=== PATIENT | male | born 1980 | race African-American/Black ===

== ENCOUNTER 2021-01-26 16:22 | Emergency (ER) | payer OTHER ==
[~2021-01-26] VITALS: Ht 175.3 cm; Wt 77.3 kg
[~2021-01-26 16:22] MED LIST: KEPPRA1000 MG PO; METOPROLOL TART50 MG PO; NEPHRO-VITE RX1 TAB PO; SENSIPAR60 MG PO
[2021-01-26 16:29] VITALS: Ht 175.3 cm; Wt 77.3 kg
[2021-01-26 17:06] LABS: BASOPHILS 0.5 % (0-2); EOSINOPHILS 2.1 % (0-7); HEMATOCRIT 34.3 % (42.0-54.0); HEMOGLOBIN 10.9 g/dL (13.5-17.5); IMMATURE GRANULOCYTES 0.1 % (0-5); LYMPHOCYTES 20.6 % (15-50); MCH 26.5 pg (26.0-34.0); MCHC 31.8 g/dL (31.0-37.0); MCV 83.5 fL (80.0-100.0); MEAN PLATELET VOLUME 9.6 fL (7.4-10.4); MONOCYTES 9.6 % (2-11); NEUTROPHIL ABS# 5.85 10x3/uL (1.78-5.38); NEUTROPHILS 67.1 % (40-80); RBC 4.11 10x6/uL (4.20-6.10); RDW 16.7 % (11.5-14.5); WBC 8.7 10x3/uL (4.8-10.8)
[2021-01-26 17:13] LABS: ANION GAP 15.9 mmol/L (8-16); CALCIUM 9.7 mg/dL (8.5-10.1); CARBON DIOXIDE 22.1 mmol/L (21.0-32.0); CREATININE - SERUM 9.3 mg/dL (0.6-1.3)
[2021-01-26 17:20] LABS: ALBUMIN 2.6 g/dL (3.4-5.0); BILIRUBIN - TOTAL 0.29 mg/dL (0.2-1.3); MAGNESIUM - SERUM 2.7 mg/dL (1.8-2.4); PHOSPHOROUS 7.2 mg/dL (2.5-4.9); PLATELET COUNT 268 10x3/uL (130-400); PROTEIN - SERUM 7.3 g/dL (6.4-8.2)
[2021-01-26 18:23] VITALS: BP 194/103
== END 2021-01-26 19:10 ==
LOC: D.ER 16:22
PROVIDERS: Emergency Medicine
DX: E11.649 Type 2 diabetes mellitus with hypoglycemia without coma (principal); Z79.4 Long term (current) use of insulin; I10 Essential (primary) hypertension; K21.9 Gastro-esophageal reflux disease without esophagitis

== ENCOUNTER 2021-02-22 12:30 | Emergency (ER) | payer OTHER ==
[~2021-02-22] VITALS: Ht 175.3 cm; Wt 79.5 kg
[2021-02-22 12:32] VITALS: Ht 175.3 cm; Wt 79.5 kg
[2021-02-22] MEDS ORDERED: KAYEXALATE15 G/60 ML PO (14:25)
[2021-02-22] MEDS ORDERED: NOVOLOG100 UNIT/1 SC (14:27)
[2021-02-22] MEDS ORDERED: SENSIPAR60 MG PO (14:28)
[2021-02-22] MEDS ORDERED: ERGOCALCIF50000 UNIT PO (14:28)
[2021-02-22] MEDS ORDERED: LANTUS INS100 UNITS/ SC (14:29)
[2021-02-22] MEDS ORDERED: XOPENEX HFA15 GM INH (14:29)
[2021-02-22] MEDS ORDERED: ADALAT CC90 MG PO (14:30)
[2021-02-22] MEDS ORDERED: ENSURE PO (14:30)
[2021-02-22] MEDS ORDERED: [UNRECOGNIZED DRUG - OTHER] (14:31)
[2021-02-22] MEDS ORDERED: HYDRALAZINE HCL25 MG PO (14:32)
[2021-02-22] MEDS ORDERED: ELIQUIS5 MG PO (14:32)
[2021-02-22] MEDS ORDERED: ALDACTONE25 MG PO (14:32)
[2021-02-22] MEDS ORDERED: OMEPRAZOLE20 M1 PO (14:32)
[2021-02-22] MEDS ORDERED: KEPPRA500 MG PO (14:33)
[2021-02-22] MEDS ORDERED: RENVELA800 MG PO (14:33)
[2021-02-22] MEDS ORDERED: DERMAREST (14:34)
[2021-02-22] MEDS ORDERED: COREG25 MG PO (14:40)
[2021-02-22 16:07] LABS: CARBON DIOXIDE 24.5 mmol/L (21.0-32.0); CREATININE - SERUM 6.3 mg/dL (0.6-1.3); POTASSIUM - SERUM 4.5 mmol/L (3.5-5.1)
[2021-02-22 16:33] LABS: ALBUMIN 2.7 g/dL (3.4-5.0); BILIRUBIN - TOTAL 0.35 mg/dL (0.2-1.3); MAGNESIUM - SERUM 2.2 mg/dL (1.8-2.4); PHOSPHOROUS 4.5 mg/dL (2.5-4.9); PROTEIN - SERUM 7.4 g/dL (6.4-8.2)
[2021-02-22 16:38] LABS: TROPONIN-I 0.105 ng/mL (0.000-0.060)
[2021-02-22 16:44] LABS: BASOPHILS 0.4 % (0-2); EOSINOPHILS 4.7 % (0-7); HEMATOCRIT 33.3 % (42.0-54.0); HEMOGLOBIN 10.5 g/dL (13.5-17.5); IMMATURE GRANULOCYTES 0.3 % (0-5); LYMPHOCYTE ABS# 1.61 10x3/uL (1.32-3.57); LYMPHOCYTES 20.9 % (15-50); MCH 25.7 pg (26.0-34.0); MCHC 31.5 g/dL (31.0-37.0); MCV 81.4 fL (80.0-100.0); NEUTROPHIL ABS# 4.92 10x3/uL (1.78-5.38); NEUTROPHILS 63.7 % (40-80); PLATELET COUNT 226 10x3/uL (130-400); RBC 4.09 10x6/uL (4.20-6.10); RDW 17.7 % (11.5-14.5); WBC 7.7 10x3/uL (4.8-10.8)
[2021-02-22 17:25] VITALS: BP 167/87
== END 2021-02-22 17:25 ==
LOC: D.ER 12:30
PROVIDERS: Emergency Medicine
DX: E11.649 Type 2 diabetes mellitus with hypoglycemia without coma (principal); R07.89 Other chest pain; N18.6 End stage renal disease; E11.22 Type 2 diabetes mellitus with diabetic chronic kidney disease; I12.0 Hypertensive chronic kidney disease with stage 5 chronic kidney disease or end stage renal disease; K21.9 Gastro-esophageal reflux disease without esophagitis; Z99.2 Dependence on renal dialysis; Z79.4 Long term (current) use of insulin

== ENCOUNTER → 2021-02-25 | Emergency (ER) | payer OTHER ==
[~2021-02-25] VITALS: Ht 175.3 cm; Wt 83.6 kg
[~2021-02-25] MED LIST changes: +ADALAT CC90 MG PO; +ALDACTONE25 MG PO; +AUGMENTIN 875-11 TAB PO; +COREG25 MG PO; +DERMAREST; +ELIQUIS5 MG PO; +ENSURE PO; +ERGOCALCIF50000 UNIT PO; +HYDRALAZINE HCL25 MG PO; +KAYEXALATE15 G/60 ML PO; +KEPPRA500 MG PO; +LANTUS INS100 UNITS/ SC; +NOVOLOG100 UNIT/1 SC; +OMEPRAZOLE20 M1 PO; +RENVELA800 MG PO; +XOPENEX HFA15 GM INH; +[UNRECOGNIZED DRUG - OTHER]
[2021-02-25 11:04] VITALS: Ht 175.3 cm; Wt 83.6 kg
[2021-02-25 11:29] LABS: BASOPHILS 0.5 % (0-2); EOSINOPHILS 3.2 % (0-7); HEMATOCRIT 31.1 % (42.0-54.0); HEMOGLOBIN 9.8 g/dL (13.5-17.5); IMMATURE GRANULOCYTES 0.2 % (0-5); LYMPHOCYTE ABS# 1.44 10x3/uL (1.32-3.57); LYMPHOCYTES 16.3 % (15-50); MCHC 31.5 g/dL (31.0-37.0); MCV 82.5 fL (80.0-100.0); MEAN PLATELET VOLUME 10.7 fL (7.4-10.4); MONOCYTES 12.1 % (2-11); NEUTROPHIL ABS# 5.97 10x3/uL (1.78-5.38); NEUTROPHILS 67.7 % (40-80); PLATELET COUNT 193 10x3/uL (130-400); RBC 3.77 10x6/uL (4.20-6.10); WBC 8.8 10x3/uL (4.8-10.8)
[2021-02-25 11:49] LABS: CALC OSMOLALITY 290 mosm/kg (275-300); CALCIUM 9.3 mg/dL (8.5-10.1); CARBON DIOXIDE 22.7 mmol/L (21.0-32.0); CHLORIDE - SERUM 104 mmol/L (98-107); CREATININE - SERUM 8.3 mg/dL (0.6-1.3); POTASSIUM - SERUM 5.4 mmol/L (3.5-5.1); SODIUM 139 mmol/L (136-145); UREA NITROGEN 37 mg/dL (7-18); eGFR NON AFRICAN AMERICAN 8 mL/min (90-120)
[2021-02-25 11:51] LABS: GLUCOSE 171 mg/dL (74-106)
[2021-02-25 11:58] LABS: INR 1.27 (0.85-1.17); PROTIME 14.8 SECONDS (11.6-15.0)
[2021-02-25 11:59] LABS: APTT 52.5 SECONDS (22.8-39.4)
[2021-02-25 12:00] LABS: D-DIMER-QUANTITATIVE 1.27 ug/mLFEU (0.20-0.54)
[2021-02-25 12:06] LABS: ALBUMIN 2.9 g/dL (3.4-5.0); ALKALINE PHOSPHATASE 92 U/L (30-120); ALT (SGPT) 19 U/L (10-68); CKMB 7.5 U/L (0.0-3.6); CREATINE KINASE 313 UL (21-232); MAGNESIUM - SERUM 2.9 mg/dL (1.8-2.4); PROTEIN - SERUM 7.7 g/dL (6.4-8.2)
[2021-02-25 12:30] LABS: TROPONIN-I 0.079 ng/mL (0.000-0.060)
[2021-02-25 19:17] VITALS: BP 176/92
== END | disposition home or self-care (01) ==
LOC: D.ER 11:00
PROVIDERS: Family Medicine
DX: R07.9 Chest pain, unspecified (principal); N18.6 End stage renal disease; Z99.2 Dependence on renal dialysis; E87.5 Hyperkalemia; R59.1 Generalized enlarged lymph nodes; E11.9 Type 2 diabetes mellitus without complications; Z79.4 Long term (current) use of insulin; I10 Essential (primary) hypertension; K21.9 Gastro-esophageal reflux disease without esophagitis

== ENCOUNTER 2021-03-14 02:19 | Inpatient (IN) | payer MEDICAID ==
[~2021-03-14] VITALS: Ht 175.3 cm; Wt 79.5 kg
[2021-03-14] VITALS (71 sets, daily range): BP systolic 104–207; BP diastolic 62–115; BMI 28.8
[2021-03-14 03:03] LABS: UDS - AMPHET NEGATIVE QUAL (NEGATIVE); UDS - BARB NEGATIVE QUAL (NEGATIVE); UDS - BENZO NEGATIVE QUAL (NEGATIVE); UDS - COCAINE NEGATIVE QUAL (NEGATIVE); UDS - OPIATE NEGATIVE QUAL (NEGATIVE); UDS - PCP NEGATIVE QUAL (NEGATIVE)
[2021-03-14 03:05] LABS: UDS - THC NEGATIVE QUAL (NEGATIVE)
[2021-03-14 03:08] LABS: BILIRUBIN NEGATIVE (NEGATIVE); KETONE NEGATIVE (NEGATIVE); NITRITE NEGATIVE (NEGATIVE); UROBILINOGEN NORMAL mg/dL (< 2)
[2021-03-14 03:09] LABS: BACTERIA MANY HPF (NONE SEEN); WHITE CELLS - URINE >50 HPF (0-1)
[2021-03-14 03:23] LABS: ANION GAP 21.6 mmol/L (8-16); CALCIUM 9.8 mg/dL (8.5-10.1); CARBON DIOXIDE 18.8 mmol/L (21.0-32.0); CREATININE - SERUM 8.9 mg/dL (0.6-1.3); POTASSIUM - SERUM 5.4 mmol/L (3.5-5.1)
[2021-03-14 03:33] LABS: BASOPHILS 0.8 % (0-2); EOSINOPHILS 5.3 % (0-7); HEMOGLOBIN 10.6 g/dL (13.5-17.5); IMMATURE GRANULOCYTES 0.9 % (0-5); LYMPHOCYTE ABS# 1.43 10x3/uL (1.32-3.57); LYMPHOCYTES 22.4 % (15-50); MCHC 31.2 g/dL (31.0-37.0); MCV 83.5 fL (80.0-100.0); MEAN PLATELET VOLUME 11.8 fL (7.4-10.4); NEUTROPHIL ABS# 4.06 10x3/uL (1.78-5.38); NEUTROPHILS 63.6 % (40-80); RBC 4.07 10x6/uL (4.20-6.10); RDW 18.5 % (11.5-14.5); WBC 6.4 10x3/uL (4.8-10.8)
[2021-03-14 03:38] LABS: PLATELET COUNT 259 10x3/uL (130-400)
[2021-03-14 03:46] LABS: ALBUMIN 2.9 g/dL (3.4-5.0); BILIRUBIN - TOTAL 0.42 mg/dL (0.2-1.3); MAGNESIUM - SERUM 2.8 mg/dL (1.8-2.4); PROTEIN - SERUM 7.9 g/dL (6.4-8.2); TROPONIN-I 0.054 ng/mL (0.000-0.060)
[2021-03-14 03:56] LABS: APTT 40.3 SECONDS (22.8-39.4); INR 1.26 (0.85-1.17); PROTIME 14.6 SECONDS (11.6-15.0)
[2021-03-14 03:57] LABS: D-DIMER-QUANTITATIVE 1.39 ug/mLFEU (0.20-0.54)
--- NOTE | 2021-03-14 07:10 | NUR ---
REPORT RECEIVED FROM OFF GOING NURSE AND PATIENT CARE ASSUMED. PATIENT LAYING ON BACK WITH HOB ELEVATED 30 DEGREES WITH EYES CLOSED AND BREATHING EVENLY. ALL LINES TUBES CHECKED AND PATENT. VSS. RT HAND EDEMATOUS AND COOL TO TOUCH. PULSES PALPABLE. PATIENT IS A PRISONER AND HAS HAND CUFF TO RT HAND WITH DATA PROCESSING AUDITOR PRESENT.REQUESTED TO MOVE HANDCUFF TO RT WRIST AND GUARD MOVED CUFF. PATIENT AWAKENS TO VOICE . ORIENTED TO NAME ONLY. PATIENT DENIES ANY NEEDS OR PAIN. WILL CONTINUE WITH PLAN OF CARE. SR UP X 2 BED IN LOW POSITION AND CALL LIGHT IN REACH.
--- NOTE | 2021-03-14 10:00 | NUR ---
ELSY CAMPOS WITH NEPHROLOGY ON UNIT. NEW ORDERS RECEIVED. WILL CONTINUE TO MONITOR. AR UP X 2 BED IN LOW POSITION AND CALL LIGHT IN REACH.
--- NOTE | 2021-03-14 11:14 | NUR ---
DR THORNTON ON UNIT.
--- NOTE | 2021-03-14 13:57 | NUR ---
PATIENT UNDERGOING DIALYSIS . VSS. WILL CONTINUE TO MONITOR. GUARD AND DIALYSIS NURSE AT BS. WILL CONTINUE TO MONITOR. SR UP X 2 BED IN LOW POSITION AND CALL LIGHT IN REACH.
[2021-03-15] VITALS (27 sets, daily range): BP systolic 114–186; BP diastolic 71–99; BMI 26.7
--- NOTE | 2021-03-15 03:06 | NUR ---
Patient reports chest pain, restless, tearful. Unable to verbalize description. Vitals stable. Baldomero Lozano APRN notified. EKG completed normal sinus rhythm. Will obtain cardiac enzymes as ordered.
--- NOTE | 2021-03-15 04:05 | NUR ---
Patient asleep. Aroused to touch. Denies pain or distress. Non-verbal, nods head. Will continue to monitor.
[2021-03-15 05:47] LABS: BASOPHILS 0.8 % (0-2); EOSINOPHILS 6.8 % (0-7); HEMATOCRIT 34.7 % (42.0-54.0); HEMOGLOBIN 10.8 g/dL (13.5-17.5); IMMATURE GRANULOCYTES 0.3 % (0-5); LYMPHOCYTE ABS# 1.53 10x3/uL (1.32-3.57); LYMPHOCYTES 24.6 % (15-50); MCHC 31.1 g/dL (31.0-37.0); MCV 83.6 fL (80.0-100.0); MEAN PLATELET VOLUME 11.7 fL (7.4-10.4); MONOCYTES 9.5 % (2-11); NEUTROPHIL ABS# 3.61 10x3/uL (1.78-5.38); PLATELET COUNT 263 10x3/uL (130-400); RBC 4.15 10x6/uL (4.20-6.10); RDW 18.9 % (11.5-14.5); WBC 6.2 10x3/uL (4.8-10.8)
--- NOTE | 2021-03-15 06:20 | NUR ---
Still unable to cancel PRBC order entered in error at 0542. Spoke to Jenny in the lab. Stated she will cancel.
[2021-03-15 06:27] LABS: CKMB 4.6 U/L (0.0-3.6); TROPONIN-I 0.051 ng/mL (0.000-0.060)
--- NOTE | 2021-03-15 06:31 | NUR ---
No sign of distress. Patient in bed quiet with eyes closed. Cardene drip remains off since 0150, Hydralazine administered x 1 as ordered prn.
--- NOTE | 2021-03-15 07:00 | NUR ---
REPORT RECEIVED. ASSESSMENT COMPLTE PER FLOW SHEET. VSS. REPOSITIONED FOR COMFORT. NEEDS MET.
[2021-03-15 07:02] LABS: ALBUMIN 2.7 g/dL (3.4-5.0); ANION GAP 20.2 mmol/L (8-16); BILIRUBIN - TOTAL 0.32 mg/dL (0.2-1.3); CALCIUM 10.1 mg/dL (8.5-10.1); CARBON DIOXIDE 20.7 mmol/L (21.0-32.0); CREATININE - SERUM 8.5 mg/dL (0.6-1.3); MAGNESIUM - SERUM 2.7 mg/dL (1.8-2.4); PHOSPHOROUS 7.1 mg/dL (2.5-4.9); POTASSIUM - SERUM 4.9 mmol/L (3.5-5.1); PROTEIN - SERUM 7.3 g/dL (6.4-8.2)
--- NOTE | 2021-03-15 09:15 | NUR ---
ORAL SUCTION ADM REPOSTITIONED FOR COMFORT NO NEW CHANGES
[2021-03-15 10:26] LABS: CKMB 4.8 U/L (0.0-3.6); TROPONIN-I 0.053 ng/mL (0.000-0.060)
--- NOTE | 2021-03-15 11:00 | NUR ---
REASSESSMENT COMPLETE PER FLOW SHEET. VSS. NO NEW CHANGES
--- NOTE | 2021-03-15 13:50 | NUR ---
DR MCCULLOUGH CALLED REGARUDING CONSULT. NO NEW ORDERS RECEIVED.
[2021-03-15 15:33] LABS: CKMB 3.8 U/L (0.0-3.6)
[2021-03-15 15:39] LABS: TROPONIN-I 0.065 ng/mL (0.000-0.060)
--- NOTE | 2021-03-15 15:42 | NUR ---
DR ZUNIGA CALLED GIVEN UPDATE REGAURDING TROPONIN NO NEW ORDERS RECEIVED
--- NOTE | 2021-03-15 17:50 | NUR ---
DR MCCULLOUGH AT BEDSIDE GIVEN UDPATE. STATED IF NEURO STATUS DOES NOT IMPROVE BY A.M. AFTER DIAYLSIS THEN MRI AND EEG TO BE ORDERED.
--- NOTE | 2021-03-15 18:20 | NUR ---
DIALYSIS AT BEDSIDE GIVEN UPDATE
--- NOTE | 2021-03-15 18:45 | NUR ---
drapery examiner at bedside, treatment initiated. No sign of distress, patient alert.
--- NOTE | 2021-03-15 21:30 | NUR ---
Dialysis completed, 1L removed. No sign of distress. Patient alert, follows commands.
[2021-03-16] VITALS (19 sets, daily range): BP systolic 111–195; BP diastolic 60–97
--- NOTE | 2021-03-16 06:51 | NUR ---
Patient able to follow commands, more alert when stimulated. Able to verbalize needs.
--- NOTE | 2021-03-16 07:10 | NUR ---
ARTURO RECEIVED FROM OF GOING NURSE AND PATIENT CARE ASSUMED. PATIENT LAYING IN BED ON BACK WITH EYES CLOSED BREATHING EVENLY. PATIENT AROUSES TO VOICE FOLLOWS COMMANDS AND ANSWERED QUESTION REGARDING PAIN STATED NO. PATIENT ORINETED TO NAME. ALL LINES CHECKED INTACT. PATIENT DENIES ANY NEEDS OR PAIN. GUARD AT BS. VSS. WILL CONTINUE TO MONITOR.SR UP X 2 BED IN LOW POSITION AND CALL LIGHT IN REACH.
[2021-03-16 07:22] LABS: EOSINOPHILS 6.1 % (0-7); HEMATOCRIT 34.7 % (42.0-54.0); HEMOGLOBIN 10.6 g/dL (13.5-17.5); IMMATURE GRANULOCYTES 0.3 % (0-5); LYMPHOCYTE ABS# 1.72 10x3/uL (1.32-3.57); MCHC 30.5 g/dL (31.0-37.0); MEAN PLATELET VOLUME 11.1 fL (7.4-10.4); MONOCYTES 12.9 % (2-11); NEUTROPHIL ABS# 3.76 10x3/uL (1.78-5.38); NEUTROPHILS 54.7 % (40-80); PLATELET COUNT 233 10x3/uL (130-400); RBC 4.08 10x6/uL (4.20-6.10); RDW 19.3 % (11.5-14.5); WBC 6.9 10x3/uL (4.8-10.8)
[2021-03-16 07:50] LABS: ALBUMIN 2.5 g/dL (3.4-5.0); ANION GAP 17.8 mmol/L (8-16); BILIRUBIN - TOTAL 0.39 mg/dL (0.2-1.3); CALCIUM 9.4 mg/dL (8.5-10.1); CREATININE - SERUM 7.6 mg/dL (0.6-1.3); MAGNESIUM - SERUM 2.5 mg/dL (1.8-2.4); PHOSPHOROUS 6.8 mg/dL (2.5-4.9); POTASSIUM - SERUM 4.8 mmol/L (3.5-5.1); PROTEIN - SERUM 6.6 g/dL (6.4-8.2)
--- NOTE | 2021-03-16 08:30 | NUR ---
DR EDWARDS ON UNIT. NO NEW ORDERS RECEIVED.
--- NOTE | 2021-03-16 12:45 | NUR ---
PATIENT CONSUMED 100% LUNCH FED BY NURSE. VSS. PATIENT DENIES ANY NEEDS OR PAIN. SR UP X 2 BED IN LOW POSITION AND CALL LIGHT IN REACH.
[2021-03-17] VITALS (14 sets, daily range): BP systolic 119–175; BP diastolic 66–94
[2021-03-17 04:57] LABS: BASOPHILS 0.7 % (0-2); EOSINOPHILS 6.5 % (0-7); HEMATOCRIT 34.6 % (42.0-54.0); HEMOGLOBIN 10.6 g/dL (13.5-17.5); IMMATURE GRANULOCYTES 0.4 % (0-5); LYMPHOCYTE ABS# 1.89 10x3/uL (1.32-3.57); LYMPHOCYTES 26.1 % (15-50); MCH 26.2 pg (26.0-34.0); MCHC 30.6 g/dL (31.0-37.0); MCV 85.4 fL (80.0-100.0); MONOCYTES 16.5 % (2-11); NEUTROPHILS 49.8 % (40-80); RBC 4.05 10x6/uL (4.20-6.10); RDW 19.1 % (11.5-14.5); WBC 7.2 10x3/uL (4.8-10.8)
[2021-03-17 05:10] LABS: ALBUMIN 2.7 g/dL (3.4-5.0); ANION GAP 15.5 mmol/L (8-16); BILIRUBIN - TOTAL 0.28 mg/dL (0.2-1.3); CALCIUM 9.6 mg/dL (8.5-10.1); CARBON DIOXIDE 27.2 mmol/L (21.0-32.0); CREATININE - SERUM 7.1 mg/dL (0.6-1.3); MAGNESIUM - SERUM 2.4 mg/dL (1.8-2.4); PHOSPHOROUS 6.7 mg/dL (2.5-4.9); POTASSIUM - SERUM 4.7 mmol/L (3.5-5.1); PROTEIN - SERUM 7.2 g/dL (6.4-8.2)
[2021-03-17 05:11] LABS: PLATELET COUNT 180 10x3/uL (130-400)
--- NOTE | 2021-03-17 10:25 | NUR ---
Nutrition follow-up: Diet order: Renal PO intake 100% of meals Labs reviewed; PO4: 6.7 Wt: 170# PO intake good at this time RDN follow-up: 03/22/21
--- NOTE | 2021-03-17 14:10 | NUR ---
TRANSFER FROM ICU BY BED. OREINTED TO ROOM. CALL LIGHT IN REACH. WILL CONT. PLAN OF CARE.
--- NOTE | 2021-03-17 16:43 | NUR ---
LEAVING FOR DIALYSIS BY BED. WILL CONT. PLAN OF CARE.
--- NOTE | 2021-03-17 18:30 | NUR ---
report received, pt not in room, pt in dialysis
[2021-03-18 00:53] VITALS: BP 117/66
[2021-03-18 05:35] VITALS: BP 145/83
[2021-03-18 05:59] LABS: EOSINOPHILS 10.1 % (0-7); HEMATOCRIT 35.7 % (42.0-54.0); HEMOGLOBIN 10.8 g/dL (13.5-17.5); IMMATURE GRANULOCYTES 0.5 % (0-5); LYMPHOCYTE ABS# 1.63 10x3/uL (1.32-3.57); LYMPHOCYTES 28.2 % (15-50); MCH 25.9 pg (26.0-34.0); MCHC 30.3 g/dL (31.0-37.0); MCV 85.6 fL (80.0-100.0); MONOCYTES 12.7 % (2-11); NEUTROPHIL ABS# 2.74 10x3/uL (1.78-5.38); NEUTROPHILS 47.5 % (40-80); PLATELET COUNT 197 10x3/uL (130-400); RBC 4.17 10x6/uL (4.20-6.10); RDW 18.8 % (11.5-14.5); WBC 5.8 10x3/uL (4.8-10.8)
[2021-03-18 06:33] LABS: ALBUMIN 2.6 g/dL (3.4-5.0); ANION GAP 13.1 mmol/L (8-16); BILIRUBIN - TOTAL 0.26 mg/dL (0.2-1.3); CALCIUM 9.5 mg/dL (8.5-10.1); CARBON DIOXIDE 29.2 mmol/L (21.0-32.0); CREATININE - SERUM 6.2 mg/dL (0.6-1.3); MAGNESIUM - SERUM 2.4 mg/dL (1.8-2.4); PHOSPHOROUS 6.2 mg/dL (2.5-4.9); POTASSIUM - SERUM 4.3 mmol/L (3.5-5.1); PROTEIN - SERUM 7.2 g/dL (6.4-8.2)
[2021-03-18 08:04] VITALS: BP 127/83
--- NOTE | 2021-03-18 11:04 | NUR ---
PATIENT AAOX4, RESP EVEN AND NON LABORED, NO S/S OF DISTRESS, MEDICATIONS ADMINISTERED WITH NO COMPLICATIONS, NO FURTHER NEEDS AT THIS TIME, CLIR, BLP
[2021-03-18 11:26] VITALS: BP 177/85
[2021-03-18 12:40] VITALS: Ht 175.3 cm; Wt 79.5 kg
--- NOTE | 2021-03-18 13:53 | NUR ---
DR. GUILLEN EVALUATED PATIENTS LEFT ARM AND WILL CONSULT DR MERCADO WELL, LEFT ARM IS SWOLLEN AND TINGLING
[2021-03-18 15:49] VITALS: BP 134/68
[2021-03-18 20:13] VITALS: BP 116/67
[2021-03-19 00:06] VITALS: BP 144/63
[2021-03-19 05:13] VITALS: BP 177/91
[2021-03-19 05:57] LABS: BASOPHILS 0.6 % (0-2); EOSINOPHILS 9.6 % (0-7); HEMATOCRIT 33.8 % (42.0-54.0); HEMOGLOBIN 10.2 g/dL (13.5-17.5); IMMATURE GRANULOCYTES 0.4 % (0-5); LYMPHOCYTES 24.9 % (15-50); MCH 25.8 pg (26.0-34.0); MCHC 30.2 g/dL (31.0-37.0); MCV 85.4 fL (80.0-100.0); MONOCYTES 10.7 % (2-11); NEUTROPHIL ABS# 3.89 10x3/uL (1.78-5.38); NEUTROPHILS 53.8 % (40-80); PLATELET COUNT 180 10x3/uL (130-400); RBC 3.96 10x6/uL (4.20-6.10); RDW 18.9 % (11.5-14.5); WBC 7.2 10x3/uL (4.8-10.8)
--- NOTE | 2021-03-19 06:21 | NUR ---
LEFT ARM REMAINS SWOLLEN & TENDER TO TOUCH. ELEVATED ON PILLOWS & PT MEDICATED FOR PAIN. RADIAL, ULNER & BRACHIAL PULSES DOPPLERED LAST NOC. FISTULA W/ +BRUIT/THRILL(FAINT) D/T EDEMA. REMOVED X1 STAPLE IN LEFT AC PER PT REQUEST D/T IT WAS HURTING HIM. X4 INCISIONS TO LEFT ARM W/ HELENE INTACT, EDGES WELL APPROXIMATED. NO DRAINAGE, SKIN AROUND HELENE DRY & FLAKEY. PT C/O EYES BEING DRY & WOULD LIKE SOME EYE DROPS. GUARD AT BEDSIDE
[2021-03-19 06:28] LABS: ALBUMIN 2.7 g/dL (3.4-5.0); ANION GAP 16.5 mmol/L (8-16); BILIRUBIN - TOTAL 0.27 mg/dL (0.2-1.3); CARBON DIOXIDE 25.4 mmol/L (21.0-32.0); MAGNESIUM - SERUM 2.4 mg/dL (1.8-2.4); POTASSIUM - SERUM 4.9 mmol/L (3.5-5.1)
[2021-03-19 06:39] LABS: PHOSPHOROUS 7.9 mg/dL (2.5-4.9)
[2021-03-19 06:40] LABS: CREATININE - SERUM 8.4 mg/dL (0.6-1.3)
--- NOTE | 2021-03-19 09:55 | NUR ---
PATIENT SITTING HIGH FOWLERS EATING BREAKFAST AAOX4, RESP EVEN AND NON LABORED, NO S/S OF DISTRESS, MEDICATIONS ADMINISTERED WITH NO COMPLICATIONS, NO FURTHER NEEDS AT THIS TIME, CLIR, PHYLLISP
--- NOTE | 2021-03-19 14:21 | NUR ---
I have reviewed this patient and I concur with the Shift Assessment completed by the Licensed Practical Nurse today this shift.
--- NOTE | 2021-03-19 17:56 | NUR ---
PATIENT IV DC WITH NO COMPLICATIONS, TELEMETRY REMOVED AND RETURNED TO MONITORS
[2021-03-19 20:37] VITALS: BP 117/66
== END 2021-03-20 00:30 | DRG 304 ==
LOC: D.ER 02:19 → D.M2 04:10 → D.ICU 04:10 → D.M2 03-17 14:03
PROVIDERS: Emergency Medicine; Family Medicine; ADMIT Family Medicine; ATTEND Family Medicine
DX: I16.1 Hypertensive emergency (principal); G93.41 Metabolic encephalopathy; N18.6 End stage renal disease; N39.0 Urinary tract infection, site not specified; E11.22 Type 2 diabetes mellitus with diabetic chronic kidney disease; Z99.2 Dependence on renal dialysis; E87.5 Hyperkalemia; D63.1 Anemia in chronic kidney disease; E11.65 Type 2 diabetes mellitus with hyperglycemia; K21.9 Gastro-esophageal reflux disease without esophagitis; E83.41 Hypermagnesemia; R59.1 Generalized enlarged lymph nodes; Z79.4 Long term (current) use of insulin; I12.0 Hypertensive chronic kidney disease with stage 5 chronic kidney disease or end stage renal disease

== ENCOUNTER 2021-05-13 15:05 | Inpatient (IN) | payer MEDICAID ==
[~2021-05-13] VITALS: Ht 175.3 cm; Wt 70.3 kg
[2021-05-13 15:06] VITALS: BP 178/95
[2021-05-13 15:32] LABS: BASOPHILS 0.8 % (0-2); HEMATOCRIT 39.6 % (42.0-54.0); HEMOGLOBIN 12.4 g/dL (13.5-17.5); LYMPHOCYTES 22.5 % (15-50); MCHC 31.2 g/dL (31.0-37.0); MCV 89.6 fL (80.0-100.0); MONOCYTES 11.3 % (2-11); NEUTROPHILS 57.4 % (40-80); RBC 4.42 10x6/uL (4.20-6.10); RDW 17.8 % (11.5-14.5); WBC 6.6 10x3/uL (4.8-10.8)
[2021-05-13] MEDS ORDERED: SEMGLEE (15:35)
[2021-05-13 15:42] LABS: PLATELET COUNT 274 10x3/uL (130-400)
[2021-05-13 15:47] LABS: ALBUMIN 3.1 g/dL (3.4-5.0); ALKALINE PHOSPHATASE 102 U/L (30-120); ALT (SGPT) 22 U/L (10-68); BILIRUBIN - TOTAL 0.27 mg/dL (0.2-1.3); CALCIUM 9.4 mg/dL (8.5-10.1); CARBON DIOXIDE 24.1 mmol/L (21.0-32.0); CHLORIDE - SERUM 101 mmol/L (98-107); CREATININE - SERUM 9.9 mg/dL (0.6-1.3); SODIUM 134 mmol/L (136-145); UREA NITROGEN 27 mg/dL (7-18); eGFR NON AFRICAN AMERICAN 6 mL/min (90-120)
[2021-05-13 15:50] LABS: CALC OSMOLALITY 287 mosm/kg (275-300); GLUCOSE 369 mg/dL (74-106)
[2021-05-13 15:56] LABS: INR 1.38 (0.85-1.17); PROTIME 15.8 SECONDS (11.6-15.0)
--- NOTE | 2021-05-13 15:56 | NUR ---
PT REPORT GIVEN TO ANGELI SAUL
[2021-05-13 15:57] LABS: APTT 47.1 SECONDS (22.8-39.4)
[2021-05-13 15:59] LABS: TROPONIN-I < 0.017 ng/mL (0.000-0.060)
[2021-05-13 16:00] VITALS: BP 185/87
[2021-05-13 16:04] LABS: POTASSIUM - SERUM 7.6 mmol/L (3.5-5.1)
[2021-05-13 17:00] VITALS: BP 189/102
[2021-05-13 18:00] VITALS: BP 196/99
--- NOTE | 2021-05-13 18:43 | NUR ---
TO DIALYSIS VIA STRETCHER WITH TECH AND ADC OFFICERS. CONDITION STABLE
--- NOTE | 2021-05-13 21:17 | NUR ---
Spoke with dialysis about patient being admitted to floor. They reported they would call the floor to come and get patient when he was done. Floor nurse Carlita notified of dialysis requirements.
--- NOTE | 2021-05-13 23:00 | NUR ---
PT ARRIVED TO THE FLOOR FROM DIALYSIS. 3L PULLED. PT ALERT AND ORIENTED. PT STATES NO PROBLEMS AT THIS TIME. SKIN CLEAN DRY AND INTACT. GUARD AT BEDSIDE. LUNG SOUNDS CLEAR. BOWEL SOUNDS ACTIVE. WILL CONTINUE PLAN OF CARE. CALL LIGHT IN REACH. BED LOWERED AND LOCKED.
[2021-05-13] MEDS ORDERED: [UNRECOGNIZED DRUG - OTHER] PO (23:38)
[2021-05-13] MEDS ORDERED: HYDRALAZINE HCL25 MG PO (23:47)
[2021-05-13] MEDS ORDERED: SENSIPAR60 MG PO (23:51)
[2021-05-14 02:18] VITALS: BP 216/108
[2021-05-14 05:55] LABS: ANION GAP 13.1 mmol/L (8-16); CALCIUM 8.9 mg/dL (8.5-10.1); CARBON DIOXIDE 27.7 mmol/L (21.0-32.0); CREATININE - SERUM 7.7 mg/dL (0.6-1.3)
[2021-05-14 05:59] LABS: BASOPHILS 1.5 % (0-2); EOSINOPHILS 7.4 % (0-7); HEMATOCRIT 38.1 % (42.0-54.0); HEMOGLOBIN 12.1 g/dL (13.5-17.5); LYMPHOCYTES 21.3 % (15-50); MCH 28.2 pg (26.0-34.0); MCHC 31.7 g/dL (31.0-37.0); MCV 88.9 fL (80.0-100.0); MEAN PLATELET VOLUME 8.8 fL (7.4-10.4); MONOCYTES 11.3 % (2-11); NEUTROPHILS 58.5 % (40-80); PLATELET COUNT 235 10x3/uL (130-400); RBC 4.28 10x6/uL (4.20-6.10); RDW 17.8 % (11.5-14.5); WBC 5.7 10x3/uL (4.8-10.8)
[2021-05-14 06:28] LABS: POTASSIUM - SERUM 6.8 mmol/L (3.5-5.1)
--- NOTE | 2021-05-14 07:20 | NUR ---
Lying in bed, awake/alert/oriented, T/R self ad isacc, anuric, cont of bowel with BRPs per self ad isacc, denies pain/other discomfort at this time, positive thrill and bruit in fistula in upper right arm, call light/phone/water within reach, no s/s of acute distress observed.
[2021-05-14 08:49] VITALS: BP 185/98
--- NOTE | 2021-05-14 09:15 | NUR ---
Off unit for discharge.
[2021-05-14 10:19] LABS: C-REACTIVE PROTEIN 5.1 mg/dL (0.0-0.9); TROPONIN-I 0.018 ng/mL (0.000-0.060)
[2021-05-14 13:03] LABS: ERYTHROCYTE SEDIMENTATION RATE 15 mm/hr (0-15)
--- NOTE | 2021-05-14 14:31 | NUR ---
PATIENT IS BACK FROM DIALYSIS WITH GUARD PRESENT. EATING LUNCH.
[2021-05-14 16:08] VITALS: BP 159/79
[2021-05-14 17:15] VITALS: BP 179/96
--- NOTE | 2021-05-14 17:15 | NUR ---
BLOOD PRESSURE PAST DIALYSIS IS STILL 179/96. BLOOD PRESSURE MEDICATION GIVEN, GUARD AT BEDSIDE.
--- NOTE | 2021-05-14 18:49 | NUR ---
PAGE INTO DELISA KEENAN APN PATIENT BLOOD SUGAR IS 310. PATIENT STATES THAT HE TAKE INSULIN LONG ACTING AND THERE ARE NO FINGER STICKS OR INSULIN ORDERED. AWAITING CALL BACK.
--- NOTE | 2021-05-14 19:09 | NUR ---
DELISA KEENAN APN TO CALL BACK AND WILL PLACE ORDERS IN.
--- NOTE | 2021-05-14 19:52 | MORECARE ---
CASE MANAGEMENT DISCHARGE SUMMARY PATIENT: LARON ARMIJO UNIT: [id number] ADM DATE: 05/13/21 AGE: 40 : 84 SEX: M ROOM/BED: D.[facility] AUTHOR: GEO,DOC PHYSICIAN: REFERRING PHYSICIAN: MARK ZUNIGA MD DATE OF SERVICE: 05/14/21 Case Management Discharge Planning Summary DCP REVIEW SUMMARY ANTICIPATED D/C DATE: EXPECTED LOS : CASE STATUS: DCP Initiated INITIAL REVIEW: 05/13/2021 INITIAL REVIEWER: Negar Cody FINAL DISCHARGE DISPOSITION: : FINAL REVIEWER: FINAL REVIEW DATE: DCP Focus Questions & Answers DCP Screen QUESTION: ANSWER High Risk Factors: : Hosp related to CHF, COPD, DM, End Stage Ds, CVA, CA DCP Evaluation QUESTION: ANSWER Patient's ability to cope with chronic illness : d. No chronic illness Would patient like to participate in any Care Coordination programs (if applicable): : Not applicable Mental health screen: : No mental health history DCP Re-evaluation QUESTION: ANSWER Would patient like to participate in any Care Coordination programs (if applicable): : Not applicable PATIENT: LARON ARMIJO ENCOUNTER: [id number] MEDICAL RECORD#: [id number] ADMISSION DATE: 05/13/2021 DISCHARGE DATE: ATTENDING MD: EFRAIN ZUNIGA : AGE: 40 MARITAL STATUS: S DC PLAN ID: [id number] FACILITY: [facility] PRINTED ON: 05/14/21 19:51 CT All edits/amendments must be made on the electronic document DICTATION DATE: 05/14/211950 LUMP MACHINE OPERATOR: GALDINO 05/14/211950 RPT#: [id number] DC DATE: STATUS: ADM IN [facility] [address] [place] [address] END OF REPORT
[2021-05-14 20:00] VITALS: BP 196/63
--- NOTE | 2021-05-14 20:02 | MORECARE ---
CASE MANAGEMENT DISCHARGE SUMMARY PATIENT: LARON ARMIJO UNIT: [id number] ADM DATE: 05/13/21 AGE: 40 : 84 SEX: M ROOM/BED: D.[facility] AUTHOR: GEODOC PHYSICIAN: REFERRING PHYSICIAN: MARK ZUNIGA MD DATE OF SERVICE: 05/14/21 Case Management Discharge Planning Summary COMMENTS ENTERED DATE: 05/14/21 19:52 CT COMMENT TYPE: Discharge Planning REVIEWER: Negar Cody DC PLAN: Return to [place] [facility] DC NEEDS: Escort back to [place]. Patient is currently an inmate at [facility]. He will return there upon discharge from hospital. He will transport back via ambulance/[facility] arrangements. CM will continue to follow and assist as needed with dc plans/needs. DCP REVIEW SUMMARY ANTICIPATED D/C DATE: EXPECTED LOS : CASE STATUS: DCP Initiated INITIAL REVIEW: 05/13/2021 INITIAL REVIEWER: Negar Cody FINAL DISCHARGE DISPOSITION: : FINAL REVIEWER: FINAL REVIEW DATE: DCP Focus Questions & Answers DCP Screen QUESTION: ANSWER High Risk Factors: : Hosp related to CHF, COPD, DM, End Stage Ds, CVA, CA DCP Evaluation QUESTION: ANSWER Patient's ability to cope with chronic illness : d. No chronic illness Would patient like to participate in any Care Coordination programs (if applicable): : Not applicable Mental health screen: : No mental health history DCP Re-evaluation QUESTION: ANSWER Would patient like to participate in any Care Coordination programs (if applicable): : Not applicable PATIENT: LARON ARMIJO ENCOUNTER: [id number] MEDICAL RECORD#: [id number] ADMISSION DATE: 05/13/2021 DISCHARGE DATE: ATTENDING MD: EFRAIN ZUNIGA : AGE: 40 MARITAL STATUS: S DC PLAN ID: [id number] FACILITY: [facility] PRINTED ON: 05/14/21 20:02 CT All edits/amendments must be made on the electronic document DICTATION DATE: 05/14/212001 COTTON DISPATCHER: GALDINO 05/14/212001 RPT#: [id number] DC DATE: STATUS: ADM IN [facility] [address] [place] [address] END OF REPORT
[2021-05-15 00:36] VITALS: BP 162/86
[2021-05-15 04:58] VITALS: BP 189/91
[2021-05-15 06:43] LABS: BASOPHILS 1.9 % (0-2); EOSINOPHILS 6.9 % (0-7); HEMATOCRIT 39.2 % (42.0-54.0); HEMOGLOBIN 12.3 g/dL (13.5-17.5); LYMPHOCYTES 26.9 % (15-50); MCH 28.1 pg (26.0-34.0); MCHC 31.4 g/dL (31.0-37.0); MCV 89.4 fL (80.0-100.0); MONOCYTES 15.1 % (2-11); NEUTROPHILS 49.2 % (40-80); PLATELET COUNT 234 10x3/uL (130-400); RBC 4.38 10x6/uL (4.20-6.10); RDW 18.2 % (11.5-14.5); WBC 6.7 10x3/uL (4.8-10.8)
[2021-05-15 07:14] LABS: ANION GAP 15.1 mmol/L (8-16); CALCIUM 8.6 mg/dL (8.5-10.1); CARBON DIOXIDE 27.2 mmol/L (21.0-32.0); CREATININE - SERUM 6.8 mg/dL (0.6-1.3)
[2021-05-15 07:33] LABS: POTASSIUM - SERUM 6.3 mmol/L (3.5-5.1)
--- NOTE | 2021-05-15 08:15 | NUR ---
AM MEDS GIVEN AT THIS TIME. PT SITTIN UP IN BED, EATING BREAKFAST. PT A/O X4, RESP EVEN AND NONLABORED ON RA. IVPB ZOSYN HUNG AT THIS TIME. TO INFUSE TO RT HAND. SR-79 ON TELE. ALL NEEDS MET, CALL LIGHT IN REACH, BOARD ATTENDANT AT BEDSIDE. WILL CONTINUE PLAN OF CARE.
[2021-05-15 08:31] VITALS: BP 150/85
[2021-05-15 10:03] VITALS: Ht 175.3 cm; Wt 70.3 kg
--- NOTE | 2021-05-15 11:14 | NUR ---
PT TO DIALYSIS VIA WHEELCHAIR, NAD NOTED.
--- NOTE | 2021-05-15 13:51 | NUR ---
PT STILL IN DIALYSIS.
[2021-05-15 16:05] VITALS: BP 107/54
[2021-05-15 20:00] VITALS: BP 149/78
[2021-05-16 01:18] VITALS: BP 138/72
[2021-05-16 05:25] LABS: BASOPHILS 1.8 % (0-2); EOSINOPHILS 6.5 % (0-7); HEMATOCRIT 39.5 % (42.0-54.0); HEMOGLOBIN 12.4 g/dL (13.5-17.5); LYMPHOCYTES 25.7 % (15-50); MCHC 31.5 g/dL (31.0-37.0); MEAN PLATELET VOLUME 8.9 fL (7.4-10.4); PLATELET COUNT 231 10x3/uL (130-400); RBC 4.44 10x6/uL (4.20-6.10); RDW 18.1 % (11.5-14.5); WBC 7.3 10x3/uL (4.8-10.8)
[2021-05-16 06:06] LABS: ANION GAP 15.8 mmol/L (8-16); CALCIUM 8.8 mg/dL (8.5-10.1); CARBON DIOXIDE 27.3 mmol/L (21.0-32.0); CREATININE - SERUM 6.9 mg/dL (0.6-1.3)
[2021-05-16 06:14] VITALS: BP 164/83
[2021-05-16 06:56] LABS: POTASSIUM - SERUM 6.1 mmol/L (3.5-5.1)
[2021-05-16 08:00] VITALS: BP 152/92
[2021-05-16 12:00] VITALS: BP 131/71
[2021-05-16 14:00] VITALS: BP 108/57
[2021-05-16 20:28] VITALS: BP 130/71
[2021-05-17 01:42] VITALS: BP 123/76
[2021-05-17 06:20] VITALS: BP 130/77
[2021-05-17 06:27] LABS: BASOPHILS 2.1 % (0-2); EOSINOPHILS 7.4 % (0-7); HEMATOCRIT 40.3 % (42.0-54.0); HEMOGLOBIN 12.7 g/dL (13.5-17.5); LYMPHOCYTES 28.5 % (15-50); MCH 28.1 pg (26.0-34.0); MCHC 31.6 g/dL (31.0-37.0); MCV 88.9 fL (80.0-100.0); MEAN PLATELET VOLUME 9.4 fL (7.4-10.4); MONOCYTES 16.6 % (2-11); NEUTROPHILS 45.4 % (40-80); PLATELET COUNT 267 10x3/uL (130-400); RBC 4.53 10x6/uL (4.20-6.10); WBC 7.5 10x3/uL (4.8-10.8)
[2021-05-17 06:28] LABS: ANION GAP 17.2 mmol/L (8-16); CALCIUM 8.9 mg/dL (8.5-10.1); CARBON DIOXIDE 26.8 mmol/L (21.0-32.0)
--- NOTE | 2021-05-17 06:38 | NUR ---
I have reviewed this patient and I concur with the Shift Assessment completed by the Licensed Practical Nurse today this shift.
[2021-05-17 08:36] VITALS: BP 152/83
--- NOTE | 2021-05-17 08:55 | NUR ---
AM MEDS GIVEN. HELD APRESOLINE FOR DIALYSIS. PT SITTING UP EATING BREAKFAST. A/O X4, RESP EVEN AND NONLABORED ON RA. RT HAND IV SL. REDNESS NOTED TO BILAT EYES. SR-75 ON TELE. RT GROIN HEMOSPLIT WTIH DRESSING CDI, CAPS IN PLACE. LT AV FISTULA WITH BRUIT AND THRIL NOTED. ALL NEEDS MET, CALL LIGHT IN REACH, FRAME CHANGER AT BEDSIDE.
--- NOTE | 2021-05-17 10:11 | NUR ---
PT TO DIALYSIS VIA BED, NAD NOTED.
--- NOTE | 2021-05-17 15:00 | NUR ---
RECEIVED PT BACK TO ROOM 2111. PT DENIES ANY NEEDS, WANTS TO TAKE A SHOWER. CALL LIGHT IN REACH, WOODWIND REEDS CUTTER AT BEDSIDE.
[2021-05-17 15:54] VITALS: BP 129/70
--- NOTE | 2021-05-17 17:05 | NUR ---
BLOOD SUGAR OF 134, NO COVERAGE NEEDED PER S/S. PT EATING DINNER, DENIES ANY NEEDS AT THIS TIME. ALF GAURD AT BEDSIDE, CALL LIGHT IN REACH.
[2021-05-17 20:36] VITALS: BP 148/77
--- NOTE | 2021-05-17 22:06 | NUR ---
RECIEVED UP IN BED WITH EYES OPEN AND TV ON. MYRA AT BEDSIDE. ALERT AND ORIENTED X4. UP AD OLI. FISTULA TO LT ARM WITH DSG IN PLACE. DSG CDI. REQUEST SANDWICH BOX. STATING HE MISSED BACON BECAUSE HE WAS IN DIALYSIS. SANDWICH BOX GIVEN. DENIES ANY OTHER NEEDS.
[2021-05-18 00:15] VITALS: BP 120/67
[2021-05-18 04:45] VITALS: BP 139/82
[2021-05-18 05:59] LABS: BASOPHILS 2.7 % (0-2); HEMATOCRIT 41.5 % (42.0-54.0); HEMOGLOBIN 13.1 g/dL (13.5-17.5); LYMPHOCYTES 29.7 % (15-50); MCH 27.9 pg (26.0-34.0); MCHC 31.5 g/dL (31.0-37.0); MCV 88.6 fL (80.0-100.0); MEAN PLATELET VOLUME 8.8 fL (7.4-10.4); MONOCYTES 19.2 % (2-11); NEUTROPHILS 41.4 % (40-80); PLATELET COUNT 251 10x3/uL (130-400); RBC 4.69 10x6/uL (4.20-6.10); WBC 6.4 10x3/uL (4.8-10.8)
[2021-05-18 06:04] LABS: ANION GAP 13.9 mmol/L (8-16); CALCIUM 8.7 mg/dL (8.5-10.1); CARBON DIOXIDE 30.2 mmol/L (21.0-32.0); CREATININE - SERUM 8.4 mg/dL (0.6-1.3); PHOSPHOROUS 6.5 mg/dL (2.5-4.9); POTASSIUM - SERUM 5.1 mmol/L (3.5-5.1)
[2021-05-18 09:17] VITALS: BP 132/71
[2021-05-18] MEDS ORDERED: ELIQUIS2.5 MG PO (10:50)
[2021-05-18] MEDS ORDERED: LOKELMA10 GM PO (10:51)
--- NOTE | 2021-05-18 11:01 | NUR ---
Nutrition Reassessment/Follow-up: Eating well. HD MWF. Diet: Renal ADA PO intake: 100% x 13 meals No new wt; last wt: 155# (05/13) Labs noted: Na 135, K+ 5.1, BUN 36, Cre 8.4, GFR 9, Glu 160, PO4 6.5 Meds noted: Lantus, Humalog, Protonix, Renagel, Sensipar, electrolyte protocol -Nutrition needs, Dx, & goals unchanged since initial assessment. -Continue current diet as tolerated. -Monitor wt. -RD will follow up within 5-7 days.
--- NOTE | 2021-05-18 12:12 | NUR ---
RESPORT CALLED TO NURSE AT [facility] IN [place]. UNDERSTANDING VOICED.
[2021-05-18 12:19] VITALS: BP 145/72
--- NOTE | 2021-05-18 12:51 | NUR ---
IV AND TELEMETRY DC. DC PAPERS SIGNED. WAITING ON TRANSPORTATION VAN.
--- NOTE | 2021-05-18 13:55 | NUR ---
ESCORTED TO [facility] BY W/CEvgeny
--- NOTE | 2021-05-18 14:06 | MORECARE ---
CASE MANAGEMENT DISCHARGE SUMMARY PATIENT: LARON ARMIJO UNIT: [id number] ADM DATE: 05/13/21 AGE: 40 : 84 SEX: M ROOM/BED: D.211 AUTHOR: SMILEY GUARDADO PHYSICIAN: REFERRING PHYSICIAN: MARK ZUNIGA MD DATE OF SERVICE: 05/18/21 Case Management Discharge Planning Summary COMMENTS ENTERED DATE: 05/14/21 19:52 CT COMMENT TYPE: Discharge Planning REVIEWER: Negar Cody DC PLAN: Return to [place] [facility] DC NEEDS: Escort back to [place]. Patient is currently an inmate at [facility]. He will return there upon discharge from hospital. He will transport back via ambulance/[facility] arrangements. CM will continue to follow and assist as needed with dc plans/needs. DCP REVIEW SUMMARY ANTICIPATED D/C DATE: EXPECTED LOS : CASE STATUS: DCP Initiated INITIAL REVIEW: 05/13/2021 INITIAL REVIEWER: Negar Cody FINAL DISCHARGE DISPOSITION: : FINAL REVIEWER: FINAL REVIEW DATE: DCP Focus Questions & Answers DCP Screen QUESTION: ANSWER High Risk Factors: : Hosp related to CHF, COPD, DM, End Stage Ds, CVA, CA DCP Evaluation QUESTION: ANSWER Patient's ability to cope with chronic illness : d. No chronic illness Would patient like to participate in any Care Coordination programs (if applicable): : Not applicable Mental health screen: : No mental health history DCP Re-evaluation QUESTION: ANSWER Would patient like to participate in any Care Coordination programs (if applicable): : Not applicable PATIENT: LARON ARMIJO ENCOUNTER: [id number] MEDICAL RECORD#: [id number] ADMISSION DATE: 05/13/2021 DISCHARGE DATE: 05/18/2021 ATTENDING MD: EFRAIN ZUNIGA : AGE: 40 MARITAL STATUS: S DC PLAN ID: [id number] FACILITY: [facility] PRINTED ON: 05/18/21 14:06 CT All edits/amendments must be made on the electronic document DICTATION DATE: 05/18/21 1406 R D MANAGER: GALDINO 05/18/21 1406 RPT#: [id number] DC DATE:05/18/21 STATUS: DIS IN [facility] [address] [place] [address] END OF REPORT
--- NOTE | 2021-05-18 19:34 | MORECARE ---
CASE MANAGEMENT DISCHARGE SUMMARY PATIENT: LARON ARMIJO UNIT: [id number] ADM DATE: 05/13/21 AGE: 40 : 84 SEX: M ROOM/BED: D.211 AUTHOR: SMILEY GUARDADO PHYSICIAN: REFERRING PHYSICIAN: MARK ZUNIGA MD DATE OF SERVICE: 05/18/21 Case Management Discharge Planning Summary COMMENTS ENTERED DATE: 05/14/21 19:52 CT COMMENT TYPE: Discharge Planning REVIEWER: Negar Cody DC PLAN: Return to [place] [facility] DC NEEDS: Escort back to [place]. Patient is currently an inmate at [facility]. He will return there upon discharge from hospital. He will transport back via ambulance/[facility] arrangements. CM will continue to follow and assist as needed with dc plans/needs. DCP REVIEW SUMMARY ANTICIPATED D/C DATE: EXPECTED LOS : CASE STATUS: DCP Initiated INITIAL REVIEW: 05/13/2021 INITIAL REVIEWER: Negar Cody FINAL DISCHARGE DISPOSITION: : FINAL REVIEWER: FINAL REVIEW DATE: DCP Focus Questions & Answers DCP Screen QUESTION: ANSWER High Risk Factors: : Hosp related to CHF, COPD, DM, End Stage Ds, CVA, CA DCP Evaluation QUESTION: ANSWER Patient's ability to cope with chronic illness : d. No chronic illness Would patient like to participate in any Care Coordination programs (if applicable): : Not applicable Mental health screen: : No mental health history DCP Re-evaluation QUESTION: ANSWER Would patient like to participate in any Care Coordination programs (if applicable): : Not applicable PATIENT: LARON ARMIJO ENCOUNTER: [id number] MEDICAL RECORD#: [id number] ADMISSION DATE: 05/13/2021 DISCHARGE DATE: 05/18/2021 ATTENDING MD: EFRAIN ZUNIGA : AGE: 40 MARITAL STATUS: S DC PLAN ID: [id number] FACILITY: [facility] PRINTED ON: 05/18/21 19:33 CT All edits/amendments must be made on the electronic document DICTATION DATE: 05/18/211932 IGNITION EXPERT: GALDINO 05/18/211932 RPT#: [id number] DC DATE:05/18/21 STATUS: DIS IN [facility] [address] [place] [address] END OF REPORT
== END 2021-05-18 13:55 | DRG 640 ==
LOC: D.ER 15:05 → D.EDHOLD 17:15 → D.M2 17:15
PROVIDERS: Emergency Medicine; Internal Medicine Nephrology; ADMIT Family Medicine; ATTEND Family Medicine
DX: E87.5 Hyperkalemia (principal); N18.6 End stage renal disease; I12.0 Hypertensive chronic kidney disease with stage 5 chronic kidney disease or end stage renal disease; E11.22 Type 2 diabetes mellitus with diabetic chronic kidney disease; Z99.2 Dependence on renal dialysis; D63.1 Anemia in chronic kidney disease; K21.9 Gastro-esophageal reflux disease without esophagitis; E11.65 Type 2 diabetes mellitus with hyperglycemia